=== PATIENT | female | born 1950 | race Hispanic/Latino ===

== ENCOUNTER 2019-07-27 18:41 | Observation (INO) | payer BC, MEDICARE ==
[~2019-07-27] VITALS: Ht 165.1 cm; Wt 55.8 kg
[~2019-07-27 18:41] MED LIST: BYSTOLIC5 MG PO
[2019-07-27] MEDS ORDERED: ASPIRIN 81 MG CHEW TAB PO ONE (19:00)
[2019-07-27 19:21] LABS: BASOPHILS # (AUTO) 0.1 (0.0-0.1); BASOPHILS % 0.8 % (0.0-1.0); EOSINOPHILS # (AUTO) 0.1 (0.0-0.4); EOSINOPHILS % 0.8 % (0.0-6.0); HEMATOCRIT 36.8 % (34.2-44.1); HEMOGLOBIN 12.4 g/dL (12.0-16.0); LYMPHOCYTES # (AUTO) 2.1 (1.0-3.2); LYMPHOCYTES % 31.9 % (18.0-39.1); MEAN CORPUSCULAR HEMOGLOBIN 30.7 pg (28-32); MEAN CORPUSCULAR HGB CONC 33.7 g/dL (31-35); MEAN CORPUSCULAR VOLUME 91.1 fL (81-99); MONOCYTES # (AUTO) 0.5 (0.2-0.8); MONOCYTES % 8.2 % (4.4-11.3); NEUTROPHILS # (AUTO) 3.8 (2.1-6.9); PLATELET COUNT 198 x10e3/uL (140-360); RED BLOOD COUNT 4.04 x10e6/uL (3.6-5.1); RED CELL DISTRIBUTION WIDTH 13.2 % (11.7-14.4)
[2019-07-27 19:38] LABS: ALANINE AMINOTRANSFERASE 12 IU/L (0-55); ALBUMIN 3.9 g/dL (3.5-5.0); ALBUMIN/GLOBULIN RATIO 1.1 (0.8-2.0); ALKALINE PHOSPHATASE 72 IU/L (40-150); ANION GAP 11.7 mmol/L (8-16); BLOOD UREA NITROGEN 11 mg/dL (7-26); BUN/CREATININE RATIO 12 (6-25); CALCIUM 9.2 mg/dL (8.4-10.2); CARBON DIOXIDE 24 mmol/L (22-29); CHLORIDE 99 mmol/L (98-107); CREATINE KINASE 94 IU/L (29-168); CREATININE, SERUM 0.91 mg/dL (0.57-1.11); EST GLOMERULAR FILTRATION RATE > 60 ML/MIN (60-); GLUCOSE 118 mg/dL (74-118); POTASSIUM 3.7 mmol/L (3.5-5.1); SODIUM 131 mmol/L (136-145)
[2019-07-27 19:50] LABS: INR 0.9; PROTHROMBIN TIME 12.6 seconds (11.9-14.5)
[2019-07-27 19:51] LABS: PARTIAL THROMBOPLASTIN TIME 33.2 seconds (23.8-35.5)
[2019-07-27] MEDS ORDERED: FLORANEX TABLE1 EACH PO (20:01)
[2019-07-27] MEDS ORDERED: ATORVASTATIN CA10 MG PO (20:01)
[2019-07-27] MEDS ORDERED: SULFAMETHOXAZO1 EAC1 PO (20:01)
[2019-07-27] MEDS ORDERED: AMLODIPINE BESYL5 MG PO (20:01)
[2019-07-27] MEDS ORDERED: LEVOTHYROXINE50 MCG PO (20:01)
[2019-07-27] MEDS ORDERED: HYDROCHLOROTH12.5 M1 PO (20:01)
[2019-07-27] MEDS ORDERED: ASPIRIN EC81 MG PO (20:01)
[2019-07-27] MEDS ORDERED: OMEPRAZOLE20 MG PO (20:01)
--- NOTE | 2019-07-27 20:11 | Diagnostic Imaging Report ---
EXAMINATION: CHEST SINGLE (PORTABLE) INDICATION: Chest pain. COMPARISON: None FINDINGS: TUBES and LINES: None. LUNGS: Lungs are well inflated. Lungs are clear. There is no evidence of pneumonia or pulmonary edema. PLEURA: No pleural effusion or pneumothorax. HEART AND MEDIASTINUM: The cardiomediastinal silhouette is unremarkable. BONES AND SOFT TISSUES: No acute osseous lesion. Linear metallic density projected on the lower mid chest may represent overlying artifact, possibly a safety pin. UPPER ABDOMEN: No free air under the diaphragm. IMPRESSION: No acute thoracic abnormality. Signed by: Dr. Paras Do M.D. on 07/27/2019 8:07 PM
--- OUTSIDE RECORDS SUMMARY | 2019-07-27 20:14 | XMS REPORT ---
Author Author [facility] Address Unknown Phone Unavailable Care Team Providers Care Fsr Name Role Phone Juan Pablo RODRIGUEZ Unavailable Unavailable Problems This patient has no known problems. Allergies, Adverse Reactions, Alerts This patient has no known allergies or adverse reactions. Medications This patient has no known medications. Results Test Description Test Time Test Comments Text Results Atomic Results Result Comments CHEST SINGLE (PORTABLE) 2019-07-27 20:06:00 [place] [id number] Patient Name: JOSEFINA COYLE MR #: [id number] : 1950 Age/Sex: 68/F Req #: [id number] Adm Physician: Ordered by: KIRK MCKNIGHT MD Report #: [id number] Location: ER Room/Bed: Procedure: [id number] DX/CHEST SINGLE (PORTABLE) Exam Date: 07/27/19 Exam Time: 1919 REPORT STATUS: Signed EXAMINATION: CHEST SINGLE (PORTABLE) INDICATION: Chest pain. COMPARISON: None FINDINGS: TUBES and LINES: None. LUNGS: Lungs are well inflated. Lungs are clear. There is no evidence of pneumonia or pulmonary edema. PLEURA: No pleural effusion or pneumothorax. HEART AND MEDIASTINUM: The cardiomediastinal silhouette is unremarkable. BONES AND SOFT TISSUES: No acute osseous lesion. Corinne ear metallic density projected on the lower mid chest may represent overlying artifact, possibly a safety pin. UPPER ABDOMEN: No free air under the diaphragm. IMPRESSION: No acute thoracic abnormality. Signed by: Dr. Paras Gaming M.D. on 07/27/2019 8:07 PM Dictated By: MARTA GAMING MD, MD 06 Transcribed By: FELICITAS on 07/27/192006 COPY TO: KIRK MCKNIGHT MD SCR MAMM BILATERAL WOJCIECH CAD DIGITAL 2018-10-04 13:59:43 - SCR MAMM BILATERAL WOJCIECH CAD DIGITALBILATERAL DIGITAL SCREENING MAMMOGRAM 3D/2D WITH CAD: 10/04/2018CLINICAL: Asymptomatic. Digital breast tomosynthesis was performed in addition to routine CC and MLO views. Current mammographic images were evaluated by either a Univision M-Vu or a [employer] ImageChecker CAD (computer aided detection system). Comparison is made to exams dated 07/19/2017 mammogram, 07/01 mammogram, and 07/29/2015 mammogram - [facility]-. The tissue of both breasts is heterogeneously dense. This may lower the sensitivity of mammography. There are benign appearing calcifications in both breasts. No suspicious mass, architectural distortion, malignant type calcification, or lymph node abnormality detected. Breast architecture is stable compared to prior exams.IMPRESSION: BENIGNThere is no mammographic evidence of malignancy. Resume annual screening mammography in one year. William Lopez M.D. ss/penrad:10/04/2018 13:59:43 Piggyback Clerk: Ingrid ALEXANDER, [facility]-FWletter sent: BIRADS 1-2 Normal Mammogram BI-RADS: 2 Benign
[2019-07-27] MEDS ORDERED: ONDANSETRON HCL INJ 2MG/ML 2ML 2 MG/ML VIAL IV PRN (20:15)
[2019-07-27] MEDS ORDERED: NITROGLYCERIN 0.4 MG SUBL SL PRN (20:15)
[2019-07-27] MEDS ORDERED: FAMOTIDINE 20 MG/2 ML VIAL IV SCH (20:15)
[2019-07-27] MEDS ORDERED: MORPHINE SULFATE 2 MG/ML SYR 1ML IV PRN (20:15)
[2019-07-27] MEDS ORDERED: SODIUM CHLORIDE FLUSH 10 ML SYR INJ PRN (20:15)
[2019-07-27] MEDS: TRIMETHOPRIM/SULFAMETHOXAZOLE 160-800 MG TAB PO SCH (20:20)
[2019-07-27 20:41] LABS: CREATINE KINASE MB < 1.00 ng/mL (0-4.3)
[2019-07-27 20:53] VITALS: BP 130/61
[2019-07-27 22:00] VITALS: BP 130/61
[2019-07-27 22:28] VITALS: BP 130/61
[2019-07-28] VITALS (7 sets, daily range): BP systolic 92–112; BP diastolic 51–61
[2019-07-28 04:11] LABS: CREATINE KINASE MB < 1.00 ng/mL (0-4.3)
[2019-07-28 04:16] LABS: CHOL/HDL RATIO 3.8 (3.0-3.6)
[2019-07-28 05:27] LABS: CREATINE KINASE 79 IU/L (29-168)
[2019-07-28] MEDS ORDERED: METOPROLOL TARTRATE INJ 1 MG/ML VIAL IV PRN (05:45)
[2019-07-28] MEDS ORDERED: ACETAMINOPHEN 325 MG TAB PO PRN (05:45)
[2019-07-28] MEDS ORDERED: POTASSIUM CHLORIDE 20 MEQ TAB CR PO STA (05:58)
[2019-07-28] MEDS ORDERED: FUROSEMIDE INJ 10 MG/ML 4 ML VIAL IV ONE (06:00)
[2019-07-28] MEDS: LEVOTHYROXINE SODIUM 50 MCG TAB PO SCH (06:07)
--- NOTE | 2019-07-28 07:23 | NUR ---
Received patient this morning, alert and responsive, denies any chest pains this morning, in bed, call light within reach, will monitor.
[2019-07-28] MEDS: PANTOPRAZOLE SOD 40 MG TABEC PO SCH (07:30)
[2019-07-28] MEDS ORDERED: FAMOTIDINE 20 MG TAB PO SCH (07:30)
[2019-07-28] MEDS: TRIMETHOPRIM/SULFAMETHOXAZOLE 160-800 MG TAB PO SCH ×2 (08:14→20:07)
[2019-07-28] MEDS: ASPIRIN 81 MG ENTERIC COATED PO SCH (08:15)
[2019-07-28] MEDS: LACTOBACILLUS ACIDOPHILUS CAPSULE PO SCH (08:15)
[2019-07-28] MEDS: ATORVASTATIN 10 MG TAB PO SCH (08:15)
--- NOTE | 2019-07-28 08:21 | NUR ---
Patient OOB and ambulated to bathroom, no c/o chest pains, BP slightly low, will monitor.
--- NOTE | 2019-07-28 08:43 | NUR ---
Holding Amlodipine and Lasix due to low BP
[2019-07-28] MEDS ORDERED: HYDROCHLOROTHIAZIDE 25 MG TAB PO SCH (09:00)
[2019-07-28] MEDS: AMLODIPINE BESYLATE 5 MG TAB PO SCH (09:00)
[2019-07-28 12:14] LABS: CREATINE KINASE MB 0.8 ng/mL (0-5.0)
--- NOTE | 2019-07-28 18:15 | NUR ---
Patient alert and responsive, Dr. Peck has yet to see patient, no c/o chest pains today, VSS and no resp distress, will monitor.
--- NOTE | 2019-07-28 21:12 | NUR ---
DR. Aurora GAR DOING ROUNDS. SAID PER HIS STANDPOINT PATIENT IS OK TO BE DC'D TOMORROW 07/29/19
[2019-07-29] VITALS: BP 98/51
--- NOTE | 2019-07-29 01:14 | Progress Note ---
DATE: Cardiology Progress Note SUBJECTIVE: No major events overnight. OBJECTIVE: VITAL SIGNS: Temperature afebrile, pulse 61, respiratory rate 18, blood pressure 119/72, saturating 100% on 2 L nasal cannula. GENERAL APPEARANCE: Elderly man, well developed, well nourished, in no acute distress. CARDIOVASCULAR: Regular rate and rhythm. No murmurs, rubs, or gallops. LUNGS: Clear to auscultation bilaterally. ABDOMEN: Soft, nontender, nondistended. Obese. NEURO AND PSYCH: Alert and oriented to person, place, and time. Normal affect. EXTREMITIES: 1+ pitting edema. INPATIENT MEDICATIONS: Reviewed. LABORATORY DATA: Reviewed. TELEMETRY DATA: Reviewed, shows normal sinus rhythm. ASSESSMENT/PLAN: 1. Acute on chronic systolic congestive heart failure. 2. History of gastrointestinal bleed and anemia. 3. Status post ICD placement. 4. Chronic kidney disease. 5. Hyperlipidemia. 6. Cirrhosis. RECOMMENDATIONS: Continue diuresing with IV Lasix. Continue all current cardiovascular medications. The patient is improving clinically, already ruled out for acute CT. Thank you for this consult. We will continue to follow. MD ILSA Mason/CELENA /[id number]
--- NOTE | 2019-07-29 01:34 | Consultation ---
DATE OF CONSULTATION: 07/28/2019 Cardiology Consult Note REASON FOR CONSULT: Chest pain. CHIEF COMPLAINT: Chest discomfort. HISTORY OF PRESENT ILLNESS: The patient is a 68-year-old female with history of hypertension, who presents with several days of uneasy feeling in the left side of her chest. Also, reporting some sudden onset weakness and feeling like she is going to fall down for several days as well. No syncopal event. No heart failure symptoms. No previous cardiovascular history. She says that sometimes the discomfort in her chest is worse when she tries to walk. Denies any shortness of breath. PAST MEDICAL HISTORY: 1. Hypertension. 2. Hyperlipidemia. 3. Hypothyroidism. SOCIAL HISTORY: She does not smoke, drink, or abuse drugs. FAMILY HISTORY: Noncontributory. OUTPATIENT MEDICATIONS: Reviewed. ALLERGIES: NO KNOWN DRUG ALLERGIES. REVIEW OF SYSTEMS: As per HPI, otherwise negative. PHYSICAL EXAMINATION: VITAL SIGNS: Temperature afebrile, pulse 63, respiratory rate 16, blood pressure 101/55, saturating 98% on room air. GENERAL: Middle-aged female, thin, well developed. CARDIOVASCULAR: Regular rate and rhythm. No murmurs, rubs, or gallops. LUNGS: Clear to auscultation bilaterally. ABDOMEN: Soft, nontender, nondistended. NEURO AND PSYCH: Alert and oriented to person, place, and time. Normal affect. INPATIENT MEDICATIONS: Reviewed. LABORATORY DATA: Reviewed. Cardiac enzymes negative x2. Sodium was 131. IMAGING DATA: Reviewed. Chest x-ray is normal. ASSESSMENT: Chest discomfort, atypical. PLAN: From a cardiovascular standpoint, the patient is okay to be discharged with outpatient followup. We will get an outpatient stress test. Recommend stopping her hydrochlorothiazide, given hyponatremia as well as low blood pressure, relatively speaking complains about weakness. Thank you for this consult. We will continue to follow. MD ILSA Mason/CELENA /[id number]
[2019-07-29 04:00] VITALS: BP 110/55
[2019-07-29] MEDS: LEVOTHYROXINE SODIUM 50 MCG TAB PO SCH (05:51)
[2019-07-29] MEDS: PANTOPRAZOLE SOD 40 MG TABEC PO SCH (07:30)
[2019-07-29 08:01] VITALS: BP 104/51
[2019-07-29] MEDS: TRIMETHOPRIM/SULFAMETHOXAZOLE 160-800 MG TAB PO SCH (08:15)
[2019-07-29] MEDS: ATORVASTATIN 10 MG TAB PO SCH (08:46)
[2019-07-29] MEDS: AMLODIPINE BESYLATE 5 MG TAB PO SCH (08:46)
[2019-07-29] MEDS: ASPIRIN 81 MG ENTERIC COATED PO SCH (08:46)
[2019-07-29] MEDS: LACTOBACILLUS ACIDOPHILUS CAPSULE PO SCH (08:46)
--- NOTE | 2019-08-01 15:02 | Discharge Summary ---
ADMISSION DIAGNOSES: 1. Chest pain. 2. Hypertension. 3. Hyperlipidemia. 4. Hypothyroidism. 5. Gastroesophageal reflux disease. 6. Urinary tract infection present on admission. DISCHARGE DIAGNOSES: 1. Chest pain. 2. Hypertension. 3. Hyperlipidemia. 4. Hypothyroidism. 5. Gastroesophageal reflux disease. 6. Urinary tract infection present on admission. 7. Rule out acute coronary syndrome. 8. Rule out urinary tract infection. HISTORY: Hypertension, hyperlipidemia, hypothyroidism, and GERD. SURGICAL HISTORY: . FAMILY HISTORY: The patient's brothers have diabetes. The patient's dad had cancer. SOCIAL HISTORY: Noncontributory. HOSPITAL COURSE: A 68-year-old female admits with intermittent left chest pressure that began 1 month ago. She says she feels like there is an obstruction. She has associated shortness of breath and dizziness. The symptoms improve when she takes a blood pressure pill. Nothing worsens the pain. On admission, the patient had an echo with an EF of 60%. EKG showed normal sinus rhythm. Chest x-ray was negative. Cardiology was consulted, who said the patient could get an outpatient stress test as the troponins were all negative. The patient and understand discharge instructions and agrees to plan. She will follow up with primary care in 1 to 2 weeks and Cardiology as discussed. Vital signs stable. The patient afebrile. Dictated by Fang Boateng NP MD KEVIN Ribeiro/CELENA /[id number]
== END 2019-07-29 08:55 | disposition home or self-care (01) ==
LOC: ER 18:41 → ERHOLD 20:03 → MED/SURG 21:03
PROVIDERS: ADMIT Internal Medicine; ATTEND Internal Medicine
DX: R07.9 Chest pain, unspecified (principal); I10 Essential (primary) hypertension; E78.5 Hyperlipidemia, unspecified; E03.9 Hypothyroidism, unspecified; N39.0 Urinary tract infection, site not specified
CPT/HCPCS: 36415; 71045; 80053; 80061; 82550 ×2; 82553 ×2; 83036; 84443; 84484 ×2; 85025; 85610; 85730; 93005; 93306; 99284; G0378 ×3; J1940; S0164 ×2

== ENCOUNTER → 2021-06-23 | Outpatient (CLI) | payer MEDICARE ==
[~2021-06-23] MED LIST changes: +AMLODIPINE BESYL5 MG PO; +ASPIRIN EC81 MG PO; +ATORVASTATIN CA10 MG PO; +FLORANEX TABLE1 EACH PO; +HYDROCHLOROTH12.5 M1 PO; +LEVOTHYROXINE50 MCG PO; +OMEPRAZOLE20 MG PO; +SULFAMETHOXAZO1 EAC1 PO
== END ==
LOC: MAMMO 12:15
PROVIDERS: ATTEND Family Medicine
DX: Z12.31 Encounter for screening mammogram for malignant neoplasm of breast (principal)
CPT/HCPCS: 77067

== ENCOUNTER → 2021-09-04 | Outpatient (CLI) | payer MEDICARE, OTHER ==
[~2021-09-04] MED LIST changes: +IOPAMIDOL 370 MG/ML 200 ML INFUS..BTL INJ ONE; +SODIUM CHLORIDE 0.9% 50ML 50 ML ONE
[2021-09-04 16:42] LABS: CREATININE, SERUM 0.81 mg/dL (0.57-1.11)
== END ==
LOC: CT 16:01
PROVIDERS: ATTEND Family Medicine
DX: R10.30 Lower abdominal pain, unspecified (principal); R10.2 Pelvic and perineal pain
CPT/HCPCS: 36415; 74177; 82565; 84520; Q9967

== ENCOUNTER → 2024-05-30 | Day surgery (SDC) | payer MEDICARE, OTHER ==
[2024-05-24 13:32] LABS: BASOPHILS # (AUTO) 0.1 (0.0-0.1); BASOPHILS % 0.8 % (0.0-1.0); EOSINOPHILS # (AUTO) 0.1 (0.0-0.4); HEMATOCRIT 37.8 % (34.2-44.1); HEMOGLOBIN 11.9 g/dL (12.0-16.0); LYMPHOCYTES # (AUTO) 2.4 (1.0-3.2); LYMPHOCYTES % 37.5 % (18.0-39.1); MEAN CORPUSCULAR HEMOGLOBIN 29.6 pg (28-32); MEAN CORPUSCULAR HGB CONC 31.5 g/dL (31-35); MONOCYTES # (AUTO) 0.8 (0.2-0.8); MONOCYTES % 12.4 % (4.4-11.3); NEUTROPHILS % 47.1 % (38.7-80.0); PLATELET COUNT 190 x10e3/uL (140-360); RED BLOOD COUNT 4.02 x10e6/uL (3.6-5.1); RED CELL DISTRIBUTION WIDTH 13.3 % (11.7-14.4); WHITE BLOOD COUNT 6.37 x10e3/uL (4.8-10.8)
[~2024-05-30] MED LIST changes: +FENTANYL CITRATE/PF 100MCG/2 ML INJ ONE; +GLYCOPYRROLATE INJ 0.2 MG/ML VIAL ONE; +HYOSCYAMINE SULFATE 0.5 MG/ML INJ ONE; -IOPAMIDOL 370 MG/ML 200 ML INFUS..BTL INJ ONE; +LIDOCAINE HCL 2% LOCAL INJ 5 ML SDV VIAL INJ ONE; +PROPOFOL IV EMULSION 10 MG/ML 50 ML VIAL IV ONE; -SODIUM CHLORIDE 0.9% 50ML 50 ML ONE
[2024-05-30] MEDS: LACTATED RINGER'S 1,000 ML ONE (07:03)
[2024-05-30 10:05] VITALS: BP 131/85; PULSE 86; RESP 15; TEMP 97.1; O2SAT 99
== END | disposition home or self-care (01) ==
LOC: OR 06:53
PROVIDERS: ATTEND Internal Medicine Gastroenterology
DX: Z12.11 Encounter for screening for malignant neoplasm of colon (principal); K63.5 Polyp of colon; K29.70 Gastritis, unspecified, without bleeding; K31.89 Other diseases of stomach and duodenum; K20.90 Esophagitis, unspecified without bleeding; K63.89 Other specified diseases of intestine; K57.30 Diverticulosis of large intestine without perforation or abscess without bleeding; K64.8 Other hemorrhoids; R63.4 Abnormal weight loss; K76.0 Fatty (change of) liver, not elsewhere classified; I10 Essential (primary) hypertension; E03.9 Hypothyroidism, unspecified; Z01.810 Encounter for preprocedural cardiovascular examination; Z01.812 Encounter for preprocedural laboratory examination; Z79.899 Other long term (current) drug therapy; Z80.0 Family history of malignant neoplasm of digestive organs
CPT/HCPCS: 36415; 43239; 45380; 45385; 85025; 93005; J1980; J2001; J2470; J2704; J3010; J7121; 45378

== ENCOUNTER → 2024-10-10 | Outpatient (REF) | payer MEDICARE, OTHER ==
[~2024-10-10] MED LIST changes: -FENTANYL CITRATE/PF 100MCG/2 ML INJ ONE; -GLYCOPYRROLATE INJ 0.2 MG/ML VIAL ONE; -HYOSCYAMINE SULFATE 0.5 MG/ML INJ ONE; -LIDOCAINE HCL 2% LOCAL INJ 5 ML SDV VIAL INJ ONE; -PROPOFOL IV EMULSION 10 MG/ML 50 ML VIAL IV ONE
== END ==
LOC: US 08:48
PROVIDERS: ATTEND Nurse Practitioner
DX: R10.30 Lower abdominal pain, unspecified (principal)
CPT/HCPCS: 76700; 76856

== ENCOUNTER 2025-05-27 15:56 | Emergency (ER) | payer MEDICARE, MEDICAID ==
[~2025-05-27] VITALS: Ht 165.1 cm; Wt 47.6 kg
[2025-05-27 18:00] VITALS: PULSE 77; RESP 16; TEMP 98.6; O2SAT 97
== END 2025-05-27 18:44 | disposition home or self-care (01) ==
LOC: ER 18:26
DX: I10 Essential (primary) hypertension (principal); E78.5 Hyperlipidemia, unspecified; E03.9 Hypothyroidism, unspecified; K21.9 Gastro-esophageal reflux disease without esophagitis; R94.31 Abnormal electrocardiogram [ECG] [EKG]
CPT/HCPCS: 93005; 99284